=== PATIENT | female | born 1970 | race Caucasian/White ===

== ENCOUNTER 2021-03-04 02:09 | Emergency (ER) | payer SELFPAY ==
[~2021-03-04] VITALS: Ht 162.6 cm; Wt 55.0 kg
[~2021-03-04 02:09] MED LIST: AMOXICILLIN/PO500 MG PO
--- NOTE | 2021-03-04 02:24 | NUR ---
BREATHING TREATMENT GIVEN BACK TO BACK.
[2021-03-04] MEDS ORDERED: ALBUTEROL108 MCG/AC IN (02:37)
[2021-03-04 02:44] LABS: HEMOGLOBIN 15.5 g/dl (12.0-16.0); MEAN CELL VOLUME 103.2 fL CALC (80.0-100.0); MEAN CORPUSCULAR HGB 33.3 pG CALC (26.0-32.0); MEAN CORPUSCULAR HGB CONC 32.3 g/dL CAL (32.0-36.0); NEUT# 4.82 thou/uL (2.00-7.15); RED BLOOD COUNT 4.65 mill/uL (4.20-5.60); RED CELL DISTRI WIDTH 14.3 % (11.5-15.5)
[2021-03-04 02:48] LABS: ALBUMIN 4.6 g/dL (3.2-5.0); ALKALINE PHOSPHATASE 90 u/l (38-126); ANION GAP 17 (6-22 (CALC)); BUN 10 mg/dL (7-17); BUN/CREATININE RATIO 13 (12-20 (CALC)); CARBON DIOXIDE 21 mmol/l (22-30); CHLORIDE 104 mmol/l (95-108); CREATININE 0.7 mg/dL (0.5-1.0); GFR > 60 ML/MIN (>=60 (CALC)); GFR FOR AFR.AMER. > 60 ML/MIN (>=60 (CALC)); POTASSIUM 4.6 mmol/l (3.5-5.1); SGOT/AST 57 u/l (14-36); SODIUM 138 mmol/l (137-146); TOTAL PROTEIN 7.8 g/dL (6.3-8.2)
[2021-03-04 02:54] LABS: D-DIMER 0.95 mg/L (0.19-0.60)
[2021-03-04 02:59] LABS: ACT PARTIAL THROMBO TIME 24.7 SECONDS (20.0-32.5); INTERNATIONAL NORMALIZED RATIO 1.2 RATIO (0.7-1.3); PROTHROMBIN TIME 12.3 SECONDS (9.0-12.5)
[2021-03-04 03:00] LABS: MYOGLOBIN 35 ng/mL (0 - 62)
[2021-03-04 04:10] LABS: URINE BILIRUBIN - DIPSTICK NEGATIVE (NEGATIVE); URINE BLOOD DIPSTICK TRACE-INTACT (NEGATIVE); URINE COLOR YELLOW; URINE GLUCOSE - DIPSTICK NEGATIVE (NEGATIVE); URINE KETONE NEGATIVE (NEGATIVE); URINE LEUK ESTERASE NEGATIVE (NEGATIVE); URINE PH 6.5 (4.5-8.0); URINE PROTEIN - DIPSTICK 100 mg/dL (NEG-TRACE); URINE UROBILINOGEN - DIPSTICK 0.2 E.U./dL (0.2)
[2021-03-04 04:14] LABS: URINE NITRITE - DIPSTICK NEGATIVE (Negative)
[2021-03-04 04:21] LABS: URINE MUCUS FEW hpf (NONE-FEW); URINE RBC 0-2 RBC/hpf (0-5); URINE SQUAMOUS EPITHELIAL CELL FEW EPI/hpf (0-FEW)
[2021-03-04] MEDS ORDERED: PREDNISONE50 MG PO (05:05)
[2021-03-04 05:09] VITALS: BP 127/82
== END 2021-03-04 05:20 | disposition home or self-care (01) | DRG 203 ==
LOC: ED 02:09
PROVIDERS: Family Medicine
DX: J45.901 Unspecified asthma with (acute) exacerbation (principal); J44.9 Chronic obstructive pulmonary disease, unspecified; R91.8 Other nonspecific abnormal finding of lung field; F17.200 Nicotine dependence, unspecified, uncomplicated; Z20.822 Contact with and (suspected) exposure to COVID-19
CPT/HCPCS: J2060; Q9967

== ENCOUNTER 2021-03-12 04:25 | Emergency (ER) | payer SELFPAY ==
[~2021-03-12] VITALS: Ht 162.6 cm; Wt 55.0 kg
[~2021-03-12 04:25] MED LIST changes: +ALBUTEROL108 MCG/AC IN; +PREDNISONE50 MG PO
[2021-03-12 05:23] LABS: HEMATOCRIT 46.5 % (37.0-47.0); HEMOGLOBIN 15.1 g/dl (12.0-16.0); IMMATURE GRANULOCYTES 0.1 % (0.0-5.0); MEAN CELL VOLUME 100.9 fL CALC (80.0-100.0); MEAN CORPUSCULAR HGB 32.8 pG CALC (26.0-32.0); MEAN CORPUSCULAR HGB CONC 32.5 g/dL CAL (32.0-36.0); NEUT# 5.41 thou/uL (2.00-7.15); RED BLOOD COUNT 4.61 mill/uL (4.20-5.60); RED CELL DISTRI WIDTH 13.3 % (11.5-15.5)
[2021-03-12 05:43] LABS: ALBUMIN 4.3 g/dL (3.2-5.0); ALKALINE PHOSPHATASE 99 u/l (38-126); BUN 11 mg/dL (7-17); BUN/CREATININE RATIO 15 (12-20 (CALC)); CARBON DIOXIDE 19 mmol/l (22-30); CHLORIDE 99 mmol/l (95-108); CREATININE 0.7 mg/dL (0.5-1.0); GFR > 60 ML/MIN (>=60 (CALC)); GFR FOR AFR.AMER. > 60 ML/MIN (>=60 (CALC)); POTASSIUM 4.6 mmol/l (3.5-5.1); SGOT/AST 66 u/l (14-36); TOTAL PROTEIN 7.1 g/dL (6.3-8.2)
[2021-03-12 05:55] LABS: MYOGLOBIN 40 ng/mL (0 - 62)
[2021-03-12 06:00] LABS: ANION GAP 18 (6-22 (CALC)); BILIRUBIN, TOTAL 1.9 mg/dL (0.0-1.4); SODIUM 131 mmol/l (137-146)
[2021-03-12] MEDS ORDERED: LASIX20 MG PO ×2 (07:25→07:30)
[2021-03-12] MEDS ORDERED: KEFLEX500 MG PO (07:25)
[2021-03-12 07:44] VITALS: BP 158/82
== END 2021-03-12 08:40 | disposition home or self-care (01) | DRG 203 ==
LOC: ED 04:25
PROVIDERS: Emergency Medicine
DX: J45.901 Unspecified asthma with (acute) exacerbation (principal); I50.9 Heart failure, unspecified; J44.9 Chronic obstructive pulmonary disease, unspecified; F17.210 Nicotine dependence, cigarettes, uncomplicated; Z20.822 Contact with and (suspected) exposure to COVID-19
CPT/HCPCS: J2060

== ENCOUNTER 2021-03-23 03:01 | Emergency (ER) | payer OTHER ==
[~2021-03-23] VITALS: Ht 162.6 cm; Wt 54.5 kg
[~2021-03-23 03:01] MED LIST changes: +KEFLEX500 MG PO; +LASIX20 MG PO
[2021-03-23] MEDS ORDERED: ULTRAM50 MG PO (03:54)
[2021-03-23] MEDS ORDERED: DOXYCYCLINE100 MG PO (03:54)
[2021-03-23 04:10] VITALS: BP 120/84
== END 2021-03-23 04:05 | disposition home or self-care (01) | DRG 603 ==
LOC: ED 03:01
DX: L03.115 Cellulitis of right lower limb (principal); S90.811A Abrasion, right foot, initial encounter; X58.XXXA Exposure to other specified factors, initial encounter; F17.200 Nicotine dependence, unspecified, uncomplicated; I50.9 Heart failure, unspecified

== ENCOUNTER 2021-03-25 05:57 | Observation (INO) | payer OTHER ==
[~2021-03-25] VITALS: Ht 162.6 cm; Wt 54.0 kg
[~2021-03-25 05:57] MED LIST changes: +DOXYCYCLINE100 MG PO; +ULTRAM50 MG PO
[2021-03-25] MEDS ORDERED: K-TAB20 MEQ (06:34)
[2021-03-25 07:28] LABS: HEMOGLOBIN 14.6 g/dl (12.0-16.0); IMMATURE GRANULOCYTES 0.1 % (0.0-5.0); MEAN CELL VOLUME 99.1 fL CALC (80.0-100.0); MEAN CORPUSCULAR HGB 32.9 pG CALC (26.0-32.0); MEAN CORPUSCULAR HGB CONC 33.2 g/dL CAL (32.0-36.0); NEUT# 4.71 thou/uL (2.00-7.15); RED BLOOD COUNT 4.44 mill/uL (4.20-5.60); RED CELL DISTRI WIDTH 13.3 % (11.5-15.5)
[2021-03-25 07:45] LABS: ALKALINE PHOSPHATASE 105 u/l (38-126); BUN 10 mg/dL (7-17); BUN/CREATININE RATIO 17 (12-20 (CALC)); CHLORIDE 93 mmol/l (95-108); CREATININE 0.6 mg/dL (0.5-1.0); GFR > 60 ML/MIN (>=60 (CALC)); GFR FOR AFR.AMER. > 60 ML/MIN (>=60 (CALC)); POTASSIUM 3.8 mmol/l (3.5-5.1); SGOT/AST 36 u/l (14-36); SODIUM 129 mmol/l (137-146); TOTAL PROTEIN 6.9 g/dL (6.3-8.2)
[2021-03-25 07:59] LABS: ANION GAP 14 (6-22 (CALC)); BILIRUBIN, TOTAL 0.8 mg/dL (0.0-1.4); CARBON DIOXIDE 26 mmol/l (22-30)
[2021-03-25 12:45] VITALS: BP 119/97
[2021-03-25 16:23] VITALS: BP 116/93
[2021-03-25 19:19] VITALS: BP 125/92
[2021-03-26 05:07] LABS: HEMATOCRIT 42.2 % (37.0-47.0); HEMOGLOBIN 14.6 g/dl (12.0-16.0); MEAN CELL VOLUME 95.5 fL CALC (80.0-100.0); MEAN CORPUSCULAR HGB CONC 34.6 g/dL CAL (32.0-36.0); RED BLOOD COUNT 4.42 mill/uL (4.20-5.60); RED CELL DISTRI WIDTH 13.3 % (11.5-15.5)
[2021-03-26 05:37] LABS: ANION GAP 15 (6-22 (CALC)); BUN 15 mg/dL (7-17); BUN/CREATININE RATIO 23 (12-20 (CALC)); CARBON DIOXIDE 22 mmol/l (22-30); CHLORIDE 99 mmol/l (95-108); CREATININE 0.7 mg/dL (0.5-1.0); GFR > 60 ML/MIN (>=60 (CALC)); GFR FOR AFR.AMER. > 60 ML/MIN (>=60 (CALC)); MAGNESIUM 1.3 mg/dL (1.6-2.3); POTASSIUM 3.9 mmol/l (3.5-5.1); SODIUM 132 mmol/l (137-146)
[2021-03-26 07:42] VITALS: BP 140/99
[2021-03-26] MEDS ORDERED: LASIX20 MG PO (10:29)
== END 2021-03-26 13:56 | disposition home or self-care (01) | DRG 603 ==
LOC: ED 05:57 → ED-I 08:40 → ED 09:03 → MS2 09:04
PROVIDERS: Emergency Medicine; ADMIT Hospitalist; ATTEND Hospitalist
DX: L03.115 Cellulitis of right lower limb (principal); R60.0 Localized edema; J45.909 Unspecified asthma, uncomplicated; F17.200 Nicotine dependence, unspecified, uncomplicated; Z20.822 Contact with and (suspected) exposure to COVID-19
CPT/HCPCS: G0378; J1650

== ENCOUNTER 2021-07-23 20:07 | Observation (INO) | payer OTHER ==
[~2021-07-23] VITALS: Ht 162.6 cm; Wt 51.0 kg
[~2021-07-23 20:07] MED LIST changes: +K-TAB20 MEQ
[2021-07-23 20:36] LABS: HEMATOCRIT 42.5 % (37.0-47.0); HEMOGLOBIN 14.1 g/dl (12.0-16.0); MEAN CELL VOLUME 97.9 fL CALC (80.0-100.0); MEAN CORPUSCULAR HGB 32.5 pG CALC (26.0-32.0); MEAN CORPUSCULAR HGB CONC 33.2 g/dL CAL (32.0-36.0); NEUT# 3.79 thou/uL (2.00-7.15); RED BLOOD COUNT 4.34 mill/uL (4.20-5.60); RED CELL DISTRI WIDTH 15.3 % (11.5-15.5)
[2021-07-23 20:52] LABS: URINE BILIRUBIN - DIPSTICK NEGATIVE (NEGATIVE); URINE BLOOD DIPSTICK NEGATIVE (NEGATIVE); URINE COLOR YELLOW; URINE GLUCOSE - DIPSTICK NEGATIVE (NEGATIVE); URINE KETONE NEGATIVE (NEGATIVE); URINE LEUK ESTERASE NEGATIVE (NEGATIVE); URINE PROTEIN - DIPSTICK NEGATIVE (NEG-TRACE); URINE SPECIFIC GRAVITY <=1.005; URINE UROBILINOGEN - DIPSTICK 0.2 E.U./dL (0.2)
[2021-07-23 20:54] LABS: URINE NITRITE - DIPSTICK NEGATIVE (Negative)
[2021-07-23 21:52] LABS: ALKALINE PHOSPHATASE 77 u/l (38-126); ANION GAP 20 (6-22 (CALC)); BILIRUBIN, TOTAL 0.4 mg/dL (0.0-1.4); BUN 19 mg/dL (7-17); BUN/CREATININE RATIO 22 (12-20 (CALC)); CARBON DIOXIDE 23 mmol/l (22-30); CHLORIDE 101 mmol/l (95-108); CREATININE 0.9 mg/dL (0.5-1.0); GFR > 60 ML/MIN (>=60 (CALC)); GFR FOR AFR.AMER. > 60 ML/MIN (>=60 (CALC)); POTASSIUM 3.1 mmol/l (3.5-5.1); SGOT/AST 35 u/l (14-36); SODIUM 141 mmol/l (137-146); TOTAL PROTEIN 8.3 g/dL (6.3-8.2)
[2021-07-23 22:04] LABS: MYOGLOBIN 59 ng/mL (0 - 62)
[2021-07-24] VITALS (58 sets, daily range): BP systolic 82–121; BP diastolic 52–87
[2021-07-24 05:34] LABS: HEMATOCRIT 36.6 % (37.0-47.0); HEMOGLOBIN 12.2 g/dl (12.0-16.0); IMMATURE GRANULOCYTES 0.2 % (0.0-5.0); MEAN CORPUSCULAR HGB 33.3 pG CALC (26.0-32.0); MEAN CORPUSCULAR HGB CONC 33.3 g/dL CAL (32.0-36.0); NEUT# 3.16 thou/uL (2.00-7.15); RED BLOOD COUNT 3.66 mill/uL (4.20-5.60); RED CELL DISTRI WIDTH 15.4 % (11.5-15.5)
[2021-07-24 05:58] LABS: ALBUMIN 3.6 g/dL (3.2-5.0); ALKALINE PHOSPHATASE 55 u/l (38-126); ANION GAP 15 (6-22 (CALC)); BILIRUBIN, TOTAL 0.4 mg/dL (0.0-1.4); BUN 11 mg/dL (7-17); BUN/CREATININE RATIO 18 (12-20 (CALC)); CARBON DIOXIDE 19 mmol/l (22-30); CHLORIDE 113 mmol/l (95-108); CREATININE 0.6 mg/dL (0.5-1.0); GFR > 60 ML/MIN (>=60 (CALC)); GFR FOR AFR.AMER. > 60 ML/MIN (>=60 (CALC)); POTASSIUM 3.4 mmol/l (3.5-5.1); SGOT/AST 27 u/l (14-36); SODIUM 143 mmol/l (137-146); TOTAL PROTEIN 6.3 g/dL (6.3-8.2)
[2021-07-24] MEDS ORDERED: LASIX 20 MG TAB20 MG PO (08:40)
[2021-07-24] MEDS ORDERED: SPIRONOLACT25 MG PO (12:27)
[2021-07-24] MEDS ORDERED: LASIX 40 MG TAB40 MG PO (12:27)
[2021-07-24] MEDS ORDERED: CARVEDILOL3.125 MG PO (12:27)
[2021-07-24] MEDS ORDERED: ENTRESTO 24-261 TAB PO (12:28)
[2021-07-24] MEDS ORDERED: TRAZODONE50 MG PO (12:28)
[2021-07-25] VITALS (8 sets, daily range): BP systolic 116–135; BP diastolic 78–96
[2021-07-25 05:51] LABS: BUN 9 mg/dL (7-17); BUN/CREATININE RATIO 17 (12-20 (CALC)); CARBON DIOXIDE 19 mmol/l (22-30); CHLORIDE 111 mmol/l (95-108); CREATININE 0.5 mg/dL (0.5-1.0); GFR > 60 ML/MIN (>=60 (CALC)); GFR FOR AFR.AMER. > 60 ML/MIN (>=60 (CALC)); SODIUM 138 mmol/l (137-146)
[2021-07-25 05:52] LABS: ANION GAP 13 (6-22 (CALC)); MAGNESIUM 2.2 mg/dL (1.6-2.3); POTASSIUM 4.5 mmol/l (3.5-5.1)
== END 2021-07-25 16:00 | disposition home or self-care (01) | DRG 918 ==
LOC: ED 20:07 → ED-I 22:25 → ED 22:50 → ED-I 22:51 → ICU 07-24 13:10
PROVIDERS: Emergency Medicine; ADMIT Internal Medicine; ATTEND Internal Medicine
DX: T43.212A Poisoning by selective serotonin and norepinephrine reuptake inhibitors, intentional self-harm, initial encounter (principal); I50.22 Chronic systolic (congestive) heart failure; T51.0X2A Toxic effect of ethanol, intentional self-harm, initial encounter; R53.83 Other fatigue; I95.9 Hypotension, unspecified; E87.6 Hypokalemia; F10.129 Alcohol abuse with intoxication, unspecified; J45.909 Unspecified asthma, uncomplicated; F17.200 Nicotine dependence, unspecified, uncomplicated; Y90.8 Blood alcohol level of 240 mg/100 ml or more; Z20.822 Contact with and (suspected) exposure to COVID-19
CPT/HCPCS: J3475